=== PATIENT | male | born 1945 | race Caucasian/White ===

== ENCOUNTER → 2018-08-25 16:13 | Outpatient (CLI) | payer MEDICARE, BC, SELFPAY ==
--- NOTE | 2018-08-25 | DI.RAD.S_ITS ---
PROCEDURE: XR FOOT RT MIN 3V INDICATIONS: PAIN IN RIGHT ANKLE AND JOINTS, UNSPECIFIED FALL TECHNIQUE: 3 views of the foot were acquired. COMPARISON: None. FINDINGS: Bones: No fractures or dislocations. No suspicious bony lesions. Soft tissues: No tibiotalar joint effusion. Achilles tendon appears normal. IMPRESSION: No trauma found. Dictated by: Dada Kelly M.D. on 08/25/2018 at 17:04 Approved by: Dada Kelly M.D. on 08/25/2018 at 17:04
--- NOTE | 2018-08-25 | DI.RAD.S_ITS ---
PROCEDURE: XR ANKLE RT 2V INDICATIONS: UNSPECIFIED FALL, PAIN IN RIGHT ANKLE AND JOINT TECHNIQUE: 3 views of the ankle were acquired. COMPARISON: None. FINDINGS: Bones: No fractures or dislocations. Ankle mortise is normally aligned. No suspicious bony lesions. Soft tissues: No tibiotalar joint effusion. Achilles tendon appears normal. IMPRESSION: No trauma found. Dictated by: Dada Kelly M.D. on 08/25/2018 at 17:03 Approved by: Dada Kelly M.D. on 08/25/2018 at 17:04
== END ==
PROVIDERS: PCP Physician Assistant; Visit Provider Student in an Organized Health Care Education/Training Program
DX: M25.571 Pain in right ankle and joints of right foot (principal)
CPT/HCPCS: 73600; 73630

== ENCOUNTER 2018-09-01 14:46 | Emergency (ER) | payer MEDICARE, BC, SELFPAY ==
[2018-09-01 14:50] VITALS: BP 158/90; PULSE 70; RESP 18; TEMP 36.4; O2SAT 98
--- NOTE | 2018-09-01 16:19 | DI.RAD.S_ITS ---
PROCEDURE: XR FOOT RT MIN 3V INDICATIONS: injury, worsening pain TECHNIQUE: 3 views of the foot were acquired. COMPARISON: [facility], CR, XR FOOT RT MIN 3V, 08/25/2018, 16:25. FINDINGS: Bones: No fractures or dislocations. No suspicious bony lesions. Soft tissues: No tibiotalar joint effusion. Achilles tendon appears normal. IMPRESSION: No trauma is found. Depending on the clinical status followup by advance imaging such as MR scanning may be warranted to assist in detecting ligamentous injury or a hidden fracture in the setting of unexpected worsening pain after trauma. Plain film imaging also had been obtained through the right foot 08/25/18. Dictated by: Dada Kelly M.D. on 09/01/2018 at 16:55 Approved by: Dada Kelly M.D. on 09/01/2018 at 16:59
[2018-09-01] MEDS: TRIMETH/SULFA 160/800 (DS) TABLET 1 TAB PO (16:24)
[2018-09-01 18:06] VITALS: BP 133/76; PULSE 65; RESP 16; TEMP 36.6; O2SAT 93
--- NOTE | 2018-09-15 07:31 | ED.EXTPRO ---
HPI - Extremity Problem General Chief complaint: Extremity Problem,Nontraumatic Stated complaint: right ankle sprain and cellulitis, not healing Time Seen by Provider: 09/01/18 15:02 Source: patient and family Mode of arrival: ambulatory Limitations: no limitations History of Present Illness HPI Narrative: Patient states that about 6 days ago, he twisted his right foot and ankle. He states that the area bruised up but also began to become red and more painful and swollen, so he sought medical attention a couple of days ago. X-rays were performed, and found to be negative, and patient was started on clindamycin. However, the patient states that the redness has persisted, and the pain and swelling are bothering him. He is concerned that his antibiotics are not working properly. Patient also is concerned that there may be an infection deep in his foot and that is why the foot hurts. Patient did not have any skin breakage during the injury. He denies fevers. No streaking. He states the redness may be slightly better today but it is hard to tell because of the bruising. Related Data Home Medications Medication Instructions Recorded Confirmed ascorbic acid (vitamin C) [Vitamin 500 mg PO PRN PRN 06/10/18 09/01/18 C] atorvastatin 40 mg PO DAILY 06/10/18 09/01/18 carvedilol 12.5 mg PO BID 06/10/18 09/01/18 coenzyme Q10 [Co Q-10] 300 mg PO DAILY 06/10/18 09/01/18 dabigatran etexilate [Pradaxa] 150 mg PO BID 06/10/18 09/01/18 isosorbide mononitrate 30 mg PO DAILY 06/10/18 09/01/18 lutein-zeaxanthin 1 cap PO DAILY 06/10/18 09/01/18 nitroglycerin 0.4 mg SUBLINGUAL Q5-15M PRN 06/10/18 09/01/18 calcium carbonate 1 tab PO PRN PRN 09/01/18 09/01/18 [id number] 1 drp OPHTHALMIC (EYE) PRN PRN 09/01/18 09/01/18 [Refresh Optive Advanced] ranibizumab [Lucentis] See Label Instructions .ROUTE 09/01/18 09/01/18 .COMPLEX ranitidine HCl 75 mg PO BID 09/01/18 09/01/18 Previous Rx's Medication Instructions Recorded sulfamethoxazole-trimethoprim 1 tab PO BID #14 tab 09/01/18 [Bactrim DS] Allergies Allergy/AdvReac Type Severity Reaction Status Date / Time No Known Drug Allergies Allergy Verified 09/01/18 14:54 Review of Systems Constitutional Denies chills, Denies fever(s), Denies lethargy and Denies weakness Eyes Denies change in vision, Denies eye discharge, Denies irritation and Denies loss of vision ENT Ears, Nose, Mouth, and Throat: Denies change in voice, Denies neck pain and Denies sore throat Cardiovascular Denies chest pain, Denies irregular heart rhythm, Denies lightheadedness, Denies palpitations, Denies dyspnea, Denies dyspnea on exertion and Denies orthopnea Respiratory Denies cough, Denies dyspnea, Denies dyspnea on exertion and Denies wheezing Gastrointestinal Gastrointestinal: Denies abdominal pain, Denies change in bowel habits, Denies diarrhea, Denies nausea and Denies vomiting Genitourinary Denies hematuria, Denies flank pain, Denies urinary incontinence and Denies urinary urgency Musculoskeletal Denies neck pain Comments: Right foot and ankle pain Integumentary/Breasts Denies pruritus, Reports erythema, Denies rash and Denies wounds Comments: Contusion Neurologic Denies confusion, Denies loss of vision and Denies weakness Psychiatric Denies anxiety, Denies confusion, Denies depression, Denies homicidal ideation and Denies suicidal ideation Endocrine Denies palpitations Hematologic/Lymphatic Denies easy bruising Allergic/Immunologic Denies wheezing [facility] Medical History Lymphocytosis (Acute) Cellulitis (Acute) Sprain of foot, right (Acute) Surgical History No pertinent past surgical history (Acute) Social History Smoking Status: Never smoker Social History Smoking Status: Never smoker Exam Initial Vital Signs Initial Vital Signs: Vital Signs Temperature 97.5 F L 09/01/18 14:50 Pulse Rate 70 09/01/18 14:50 Respiratory Rate 18 09/01/18 14:50 Blood Pressure 158/90 H 09/01/18 14:50 Pulse Oximetry 98 09/01/18 14:50 Const General: cooperative and well developed Nutritional Appearance: well nourished Orientation: alert, awake, oriented x3 and not confused [facility] Head: normocephalic and atraumatic Ears: external ears normal and TM's normal bilaterally Nose: external nose normal and No nasal discharge Face and sinus: sinuses nontender, face symmetric, no sinus tenderness and No dry mucous membranes Mouth: oral mucosae normal and moist mucous membranes Teeth and gingiva: dentition normal Throat: tonsils normal and uvula midline Eyes General: appearance normal, both eyes and all related structures Eyelids: eyelids normal Conjunctivae: conjunctivae normal Sclera: sclerae normal Pupils: PERRL EOM: EOM intact bilaterally Neck Neck: normal visual inspection, trachea midline, No lymphadenopathy, No midline deformity and No JVD Lymphatic: No lymphedema Chest Chest: normal inspection of the chest Resp Effort & Inspection: normal respiratory effort, able to speak in complete sentences, no respiratory distress and no use of accessory muscles Auscultation: clear to auscultation bilaterally, no rales, no rhonchi and no wheezes Cardio Rate: regular rate Rhythm: regular rhythm Heart Sounds: no click, no gallops, no murmurs and no rubs Pulses: normal peripheral pulses GI Inspection: non-distended Palpation: soft, no hepatosplenomegaly, No guarding, No pulsatile mass and No tender Auscultation: normal bowel sounds Back/Spine/Pelvis Back: No CVA tenderness Cervical Spine: cervical ROM normal and No pain with cervical ROM Thoracic/Lumbar Spine: thoracic and lumbar spine normal to inspection Skin General: no rashes or lesions noted, No jaundice and No petechiae Other: Erythema and contusion of right foot, as noted under the extremity exam. Neuro General: alert, oriented x3, gait normal and no focal motor deficits Speech: speech normal Extrem General: full ROM and no calf tenderness Other: Patient has subacute contusion noted over his dorsal right foot with moderate edema. Mild edema of the lateral ankle is noted, as well as faint contusion. There is also erythema over the dorsum of the right foot which extends a few cm past the area of contusion. The total area of erythema is approximately 8 cm in diameter. There is no streaking. No crepitus. No no fluctuance or induration. Distal pulses are intact. Psych Appearance: well kempt Mental Status: mental status grossly normal Attitude: cooperative Thought Content: normal and suicidality Judgment: judgment good Course Course Narrative: Patient's x-rays were repeated, and no development or clarification of occult fracture was found. I did discuss with the patient that most likely, he needs more time on antibiotics to see a better turnaround. However, since the more optimal coverage for skin pathogens would be Bactrim, I will switch him to this. We have discussed the usual indications for return under the circumstances, including redness that continues to spread over the next few days, as well as development of fever, among other things. Patient is agreeable to this plan. Orders Ordered: Discontinued Medications Trimethoprim/Sulfamethoxazole (Bactrim Ds) 1 tab PO NOW ONE Stop: 09/01/18 16:20 Last Admin: 09/01/18 16:24 Dose: 1 tab MDM - Extremity (Nontraumatic) Medical Records Attestation: I reviewed the patient's medical records. Imaging Data Right foot x-ray: Attestation: I personally reviewed and interpreted this imaging study as follows: My impression: Negative Radiologist's impression: [address] [address] XRay Report Signed Patient: Mike KramerMR#: [id number] : 5Acct:[id number] Age/Sex: 72 / MDate of Service: 09/01/18 Loc: ED Accession Number: [id number] Procedure: XR foot RT min 3V Ordering Provider: Radha Hayes MD PROCEDURE: XR FOOT RT MIN 3V INDICATIONS: injury, worsening pain TECHNIQUE: 3 views of the foot were acquired. COMPARISON: [facility], , XR FOOT RT MIN 3V, 08/25/2018, 16:25. FINDINGS: Bones: No fractures or dislocations. No suspicious bony lesions. Soft tissues: No tibiotalar joint effusion. Achilles tendon appears normal. IMPRESSION: No trauma is found. Depending on the clinical status followup by advance imaging such as MR scanning may be warranted to assist in detecting ligamentous injury or a hidden fracture in the setting of unexpected worsening pain after trauma. Plain film imaging also had been obtained through the right foot 08/25/18. Dictated by: Dada Kelly M.D. on 09/01/2018 at 16:55 Approved by: Dada Kelly M.D. on 09/01/2018 at 16:59 Discharge Plan Departure Patient Disposition: Home Clinical Impression: Cellulitis, Sprain of foot, right Discharge Date/Time: 09/01/18 18:08 Interventions: ED Discharge Assessment Last Done: 09/01/18 18:06 Instructions: DI for Cellulitis -- Adult, DI for Foot Sprain Activity Restrictions/Additional Instructions: Your x-rays do not show evidence of any broken bones. The progression of the redness seems to have stalled, and most likely, you just need more time on antibiotics. However, you will be switched to the first choice for skin infection, to be sure you are being adequately treated for all the potential bacteria expected for this kind of infection. Prescriptions: New sulfamethoxazole-trimethoprim [Bactrim DS] 800-160 mg tablet 1 tab PO BID Qty: 14 RF: 0 No Action [id number] [Refresh Optive Advanced] 0.5-1-0.5 % drops 1 drp ophthalmic (eye) PRN PRN (Reason: Dry Eyes) RF: 0 ranitidine HCl 75 mg Tablet 75 mg PO BID RF: 0 calcium carbonate 320 mg calcium (750 mg) Tablet,Chewable 1 tab PO PRN PRN (Reason: Indigestion) RF: 0 ranibizumab [Lucentis] 0.5 mg/0.05 mL Syringe See Label Instructions .ROUTE .COMPLEX RF: 0 atorvastatin 40 mg Tablet 40 mg PO DAILY RF: 0 carvedilol 12.5 mg Tablet 12.5 mg PO BID RF: 0 isosorbide mononitrate 30 mg Tablet Extended Release 24 Hr 30 mg PO DAILY RF: 0 ascorbic acid (vitamin C) [Vitamin C] 500 mg Tablet 500 mg PO PRN PRN (Reason: unknown) RF: 0 nitroglycerin 0.4 mg Tablet, Sublingual 0.4 mg SUBLINGUAL Q5-15M PRN (Reason: Angina) RF: 0 coenzyme Q10 [Co Q-10] 300 mg Capsule 300 mg PO DAILY RF: 0 dabigatran etexilate [Pradaxa] 150 mg Capsule 150 mg PO BID RF: 0 lutein-zeaxanthin 25-5 mg Capsule 1 cap PO DAILY RF: 0 Referrals: Latonia Malik PA-C [Primary Care Provider] -
--- NOTE | 2018-09-15 07:38 | ED_ITS ---
HPI - Extremity Problem General Chief complaint: Extremity Problem,Nontraumatic Stated complaint: right ankle sprain and cellulitis, not healing Time Seen by Provider: 09/01/18 15:02 Source: patient and family Mode of arrival: ambulatory Limitations: no limitations History of Present Illness HPI Narrative: Patient states that about 6 days ago, he twisted his right foot and ankle. He states that the area bruised up but also began to become red and more painful and swollen, so he sought medical attention a couple of days ago. X-rays were performed, and found to be negative, and patient was started on clindamycin. However, the patient states that the redness has persisted, and the pain and swelling are bothering him. He is concerned that his antibiotics are not working properly. Patient also is concerned that there may be an infection deep in his foot and that is why the foot hurts. Patient did not have any skin breakage during the injury. He denies fevers. No streaking. He states the redness may be slightly better today but it is hard to tell because of the bruising. Related Data Home Medications Medication Instructions Recorded Confirmed ascorbic acid (vitamin C) [Vitamin 500 mg PO PRN PRN 06/10/18 09/01/18 C] atorvastatin 40 mg PO DAILY 06/10/18 09/01/18 carvedilol 12.5 mg PO BID 06/10/18 09/01/18 coenzyme Q10 [Co Q-10] 300 mg PO DAILY 06/10/18 09/01/18 dabigatran etexilate [Pradaxa] 150 mg PO BID 06/10/18 09/01/18 isosorbide mononitrate 30 mg PO DAILY 06/10/18 09/01/18 lutein-zeaxanthin 1 cap PO DAILY 06/10/18 09/01/18 nitroglycerin 0.4 mg SUBLINGUAL Q5-15M PRN 06/10/18 09/01/18 calcium carbonate 1 tab PO PRN PRN 09/01/18 09/01/18 [id number] 1 drp OPHTHALMIC (EYE) PRN PRN 09/01/18 09/01/18 [Refresh Optive Advanced] ranibizumab [Lucentis] See Label Instructions .ROUTE 09/01/18 09/01/18 .COMPLEX ranitidine HCl 75 mg PO BID 09/01/18 09/01/18 Previous Rx's Medication Instructions Recorded sulfamethoxazole-trimethoprim 1 tab PO BID #14 tab 09/01/18 [Bactrim DS] Allergies Allergy/AdvReac Type Severity Reaction Status Date / Time No Known Drug Allergies Allergy Verified 09/01/18 14:54 Review of Systems Constitutional Denies chills, Denies fever(s), Denies lethargy and Denies weakness Eyes Denies change in vision, Denies eye discharge, Denies irritation and Denies loss of vision ENT Ears, Nose, Mouth, and Throat: Denies change in voice, Denies neck pain and Denies sore throat Cardiovascular Denies chest pain, Denies irregular heart rhythm, Denies lightheadedness, Denies palpitations, Denies dyspnea, Denies dyspnea on exertion and Denies orthopnea Respiratory Denies cough, Denies dyspnea, Denies dyspnea on exertion and Denies wheezing Gastrointestinal Gastrointestinal: Denies abdominal pain, Denies change in bowel habits, Denies diarrhea, Denies nausea and Denies vomiting Genitourinary Denies hematuria, Denies flank pain, Denies urinary incontinence and Denies urinary urgency Musculoskeletal Denies neck pain Comments: Right foot and ankle pain Integumentary/Breasts Denies pruritus, Reports erythema, Denies rash and Denies wounds Comments: Contusion Neurologic Denies confusion, Denies loss of vision and Denies weakness Psychiatric Denies anxiety, Denies confusion, Denies depression, Denies homicidal ideation and Denies suicidal ideation Endocrine Denies palpitations Hematologic/Lymphatic Denies easy bruising Allergic/Immunologic Denies wheezing [facility] Medical History Lymphocytosis (Acute) Cellulitis (Acute) Sprain of foot, right (Acute) Surgical History No pertinent past surgical history (Acute) Social History Smoking Status: Never smoker Social History Smoking Status: Never smoker Exam Initial Vital Signs Initial Vital Signs: Vital Signs Temperature 97.5 F L 09/01/18 14:50 Pulse Rate 70 09/01/18 14:50 Respiratory Rate 18 09/01/18 14:50 Blood Pressure 158/90 H 09/01/18 14:50 Pulse Oximetry 98 09/01/18 14:50 Const General: cooperative and well developed Nutritional Appearance: well nourished Orientation: alert, awake, oriented x3 and not confused [facility] Head: normocephalic and atraumatic Ears: external ears normal and TM's normal bilaterally Nose: external nose normal and No nasal discharge Face and sinus: sinuses nontender, face symmetric, no sinus tenderness and No dry mucous membranes Mouth: oral mucosae normal and moist mucous membranes Teeth and gingiva: dentition normal Throat: tonsils normal and uvula midline Eyes General: appearance normal, both eyes and all related structures Eyelids: eyelids normal Conjunctivae: conjunctivae normal Sclera: sclerae normal Pupils: PERRL EOM: EOM intact bilaterally Neck Neck: normal visual inspection, trachea midline, No lymphadenopathy, No midline deformity and No JVD Lymphatic: No lymphedema Chest Chest: normal inspection of the chest Resp Effort & Inspection: normal respiratory effort, able to speak in complete sentences, no respiratory distress and no use of accessory muscles Auscultation: clear to auscultation bilaterally, no rales, no rhonchi and no wheezes Cardio Rate: regular rate Rhythm: regular rhythm Heart Sounds: no click, no gallops, no murmurs and no rubs Pulses: normal peripheral pulses GI Inspection: non-distended Palpation: soft, no hepatosplenomegaly, No guarding, No pulsatile mass and No tender Auscultation: normal bowel sounds Back/Spine/Pelvis Back: No CVA tenderness Cervical Spine: cervical ROM normal and No pain with cervical ROM Thoracic/Lumbar Spine: thoracic and lumbar spine normal to inspection Skin General: no rashes or lesions noted, No jaundice and No petechiae Other: Erythema and contusion of right foot, as noted under the extremity exam. Neuro General: alert, oriented x3, gait normal and no focal motor deficits Speech: speech normal Extrem General: full ROM and no calf tenderness Other: Patient has subacute contusion noted over his dorsal right foot with moderate edema. Mild edema of the lateral ankle is noted, as well as faint contusion. There is also erythema over the dorsum of the right foot which extends a few cm past the area of contusion. The total area of erythema is approximately 8 cm in diameter. There is no streaking. No crepitus. No no fluctuance or induration. Distal pulses are intact. Psych Appearance: well kempt Mental Status: mental status grossly normal Attitude: cooperative Thought Content: normal and suicidality Judgment: judgment good Course Course Narrative: Patient's x-rays were repeated, and no development or clarification of occult fracture was found. I did discuss with the patient that most likely, he needs more time on antibiotics to see a better turnaround. However, since the more optimal coverage for skin pathogens would be Bactrim, I will switch him to this. We have discussed the usual indications for return under the circumstances, including redness that continues to spread over the next few days, as well as development of fever, among other things. Patient is agreeable to this plan. Orders Ordered: Discontinued Medications Trimethoprim/Sulfamethoxazole (Bactrim Ds) 1 tab PO NOW ONE Stop: 09/01/18 16:20 Last Admin: 09/01/18 16:24 Dose: 1 tab MDM - Extremity (Nontraumatic) Medical Records Attestation: I reviewed the patient's medical records. Imaging Data Right foot x-ray: Attestation: I personally reviewed and interpreted this imaging study as follows: My impression: Negative Radiologist's impression: [address] [address] XRay Report Signed Patient: Mike KramerMR#: [id number] : 5Acct:[id number] Age/Sex: 72 / MDate of Service: 09/01/18 Loc: ED Accession Number: [id number] Procedure: XR foot RT min 3V Ordering Provider: Radha Hayes MD PROCEDURE: XR FOOT RT MIN 3V INDICATIONS: injury, worsening pain TECHNIQUE: 3 views of the foot were acquired. COMPARISON: [facility], , XR FOOT RT MIN 3V, 08/25/2018, 16:25. FINDINGS: Bones: No fractures or dislocations. No suspicious bony lesions. Soft tissues: No tibiotalar joint effusion. Achilles tendon appears normal. IMPRESSION: No trauma is found. Depending on the clinical status followup by advance imaging such as MR scanning may be warranted to assist in detecting ligamentous injury or a hidden fracture in the setting of unexpected worsening pain after trauma. Plain film imaging also had been obtained through the right foot 08/25/18. Dictated by: Dada Kelly M.D. on 09/01/2018 at 16:55 Approved by: Dada Kelly M.D. on 09/01/2018 at 16:59 Discharge Plan Departure Patient Disposition: Home Clinical Impression: Cellulitis, Sprain of foot, right Discharge Date/Time: 09/01/18 18:08 Interventions: ED Discharge Assessment Last Done: 09/01/18 18:06 Instructions: DI for Cellulitis -- Adult, DI for Foot Sprain Activity Restrictions/Additional Instructions: Your x-rays do not show evidence of any broken bones. The progression of the redness seems to have stalled, and most likely, you just need more time on antibiotics. However, you will be switched to the first choice for skin infection, to be sure you are being adequately treated for all the potential bacteria expected for this kind of infection. Prescriptions: New sulfamethoxazole-trimethoprim [Bactrim DS] 800-160 mg tablet 1 tab PO BID Qty: 14 RF: 0 No Action [id number] [Refresh Optive Advanced] 0.5-1-0.5 % drops 1 drp ophthalmic (eye) PRN PRN (Reason: Dry Eyes) RF: 0 ranitidine HCl 75 mg Tablet 75 mg PO BID RF: 0 calcium carbonate 320 mg calcium (750 mg) Tablet,Chewable 1 tab PO PRN PRN (Reason: Indigestion) RF: 0 ranibizumab [Lucentis] 0.5 mg/0.05 mL Syringe See Label Instructions .ROUTE .COMPLEX RF: 0 atorvastatin 40 mg Tablet 40 mg PO DAILY RF: 0 carvedilol 12.5 mg Tablet 12.5 mg PO BID RF: 0 isosorbide mononitrate 30 mg Tablet Extended Release 24 Hr 30 mg PO DAILY RF: 0 ascorbic acid (vitamin C) [Vitamin C] 500 mg Tablet 500 mg PO PRN PRN (Reason: unknown) RF: 0 nitroglycerin 0.4 mg Tablet, Sublingual 0.4 mg SUBLINGUAL Q5-15M PRN (Reason: Angina) RF: 0 coenzyme Q10 [Co Q-10] 300 mg Capsule 300 mg PO DAILY RF: 0 dabigatran etexilate [Pradaxa] 150 mg Capsule 150 mg PO BID RF: 0 lutein-zeaxanthin 25-5 mg Capsule 1 cap PO DAILY RF: 0 Referrals: Latonia Malik PA-C [Primary Care Provider] -
== END 2018-09-01 18:08 | disposition home or self-care (01) ==
PROVIDERS: Emergency Provider Emergency Medicine; PCP Physician Assistant
DX: L03.115 Cellulitis of right lower limb (principal); S93.601A Unspecified sprain of right foot, initial encounter
CPT/HCPCS: 73630; 99282; 99283

== ENCOUNTER → 2020-04-04 16:40 | Outpatient (CLI) | payer MEDICARE, BC, SELFPAY ==
[2020-04-04 18:00] LABS: Add Manual Diff / Slide Review NO; Basophils Absolute Auto 0 /uL (0-100); Basophils Percent Auto 0.2 % (0-2); Eosinophils Absolute Auto 200 /uL (0-450); Eosinophils Percent Auto 1.2 % (2-4); Hematocrit 41.1 % (41-53); Lymphocytes Absolute Auto 8800 /uL (1100-4500); Lymphocytes Percent Auto 60.6 % (25-40); Mean Corpuscular Hemoglobin 31.3 PG (26-34); Monocytes Absolute Auto 900 /uL (0-900); Monocytes Percent Auto 5.9 % (3-14); Neutrophils Absolute Auto 4700 /uL (1500-7000); Neutrophils Percent Auto 32.1 % (50-75); Platelet Count 119 X10^3/uL (150-400); Red Blood Cell Count 4.47 X10^6/uL (4.5-5.9); Red Cell Distribution Width 13.3 % (11.6-14.8); White Blood Cell Count 14.6 X10^3/uL (4.5-11.0)
[2020-04-04 18:11] LABS: Alanine Aminotransferase 26 IU/L (<50); Albumin Globulin Ratio 1.4 (1.0-2.8); Alkaline Phosphatase 67 U/L (38-126); Aspartate Aminotransferase 30 IU/L (17-59); BUN Creatinine Ratio 22.7 (6-22); Bilirubin Total 0.7 mg/dL (0.2-1.3); Blood Urea Nitrogen 17 mg/dL (9-20); Calcium 8.7 mg/dL (8.4-10.2); Carbon Dioxide 28 mmol/L (22-32); Chloride 104 mmol/L (98-107); Estimated Glomerular Filt Rate > 60.0 mL/min (>60); Globulin 2.8 g/dL (1.7-4.1); Glucose 85 mg/dL (80-110); HEMOLYSIS < 15 (0-50); Lactate Dehydrogenase 416 U/L (313-618); Potassium 4.5 mmol/L (3.4-5.1); Sodium 137 mmol/L (137-145); Total Protein 6.8 g/dL (6.3-8.2)
== END ==
PROVIDERS: PCP Internal Medicine; Referring Provider Internal Medicine Hematology & Oncology; Visit Provider Internal Medicine Hematology & Oncology
DX: C91.90 Lymphoid leukemia, unspecified not having achieved remission (principal)
CPT/HCPCS: 36415; 80053; 83615; 85025

== ENCOUNTER → 2020-06-15 19:04 | Outpatient (ROUT) | payer MEDICARE, BC, SELFPAY ==
[2020-06-15 19:25] LABS: Alanine Aminotransferase 26 IU/L (<50); Albumin Globulin Ratio 1.4 (1.0-2.8); Alkaline Phosphatase 68 U/L (38-126); Aspartate Aminotransferase 31 IU/L (17-59); BUN Creatinine Ratio 22.2 (6-22); Bilirubin Total 0.6 mg/dL (0.2-1.3); Blood Urea Nitrogen 16 mg/dL (9-20); Calcium 8.8 mg/dL (8.4-10.2); Carbon Dioxide 27 mmol/L (22-32); Chloride 105 mmol/L (98-107); Cholesterol 132 mg/dL (140-199); Estimated Glomerular Filt Rate > 60.0 mL/min (>60); Globulin 2.8 g/dL (1.7-4.1); Glucose 85 mg/dL (80-110); HDL Cholesterol 50 mg/dL (40-60); HEMOLYSIS < 15 (0-50); LDL Cholesterol Calculated 68 mg/dL (<100); Potassium 4.5 mmol/L (3.4-5.1); Sodium 138 mmol/L (137-145); Total Protein 6.8 g/dL (6.3-8.2); Triglycerides 72 mg/dL (35-150)
[2020-06-15 19:43] LABS: Hematocrit 45.9 % (41-53); Hemoglobin 15.3 g/dL (13.5-17.5); Mean Corpuscular HGB Conc 33.3 % (30-36); Mean Corpuscular Volume 93.1 fL (80-100); Platelet Count 154 X10^3/uL (150-400); Red Blood Cell Count 4.93 X10^6/uL (4.5-5.9); Red Cell Distribution Width 14.1 % (11.6-14.8); White Blood Cell Count 17.7 X10^3/uL (4.5-11.0)
[2020-06-15 19:45] LABS: Add Manual Diff / Slide Review YES
[2020-06-15 19:53] LABS: TSH w/ Reflex to FT4 2.83 uIU/mL (0.47-4.68)
[2020-06-15 20:06] LABS: Neutrophils Absolute Manual 4956 /uL (3000-5900); Total Cells Counted 100
[2020-06-15 20:07] LABS: RBC Morphology Normal Morphology; Smudge Cells 1+
== END ==
PROVIDERS: PCP Internal Medicine; Visit Provider Internal Medicine
DX: I48.0 Paroxysmal atrial fibrillation (principal); E78.2 Mixed hyperlipidemia
CPT/HCPCS: 80053; 80061; 84443; 85025

== ENCOUNTER → 2020-10-12 16:19 | Outpatient (CLI) | payer MEDICARE, BC, SELFPAY ==
[2020-10-12 17:05] LABS: Add Manual Diff / Slide Review YES; Hematocrit 42.1 % (41-53); Hemoglobin 14.5 g/dL (13.5-17.5); Mean Corpuscular HGB Conc 34.3 % (30-36); Mean Corpuscular Hemoglobin 31.7 PG (26-34); Mean Corpuscular Volume 92.4 fL (80-100); Platelet Count 132 X10^3/uL (150-400); Red Blood Cell Count 4.56 X10^6/uL (4.5-5.9); Red Cell Distribution Width 12.9 % (11.6-14.8)
[2020-10-12 17:16] LABS: Alanine Aminotransferase 27 IU/L (<50); Albumin 4.2 g/dL (3.5-5.0); Albumin Globulin Ratio 1.5 (1.0-2.8); Alkaline Phosphatase 77 U/L (38-126); Aspartate Aminotransferase 31 IU/L (17-59); BUN Creatinine Ratio 25.3 (6-22); Bilirubin Total 0.8 mg/dL (0.2-1.3); Blood Urea Nitrogen 19 mg/dL (9-20); Carbon Dioxide 28 mmol/L (22-32); Chloride 101 mmol/L (98-107); Estimated Glomerular Filt Rate > 60.0 mL/min (>60); Globulin 2.8 g/dL (1.7-4.1); Glucose 91 mg/dL (80-110); HEMOLYSIS < 15 (0-50); Lactate Dehydrogenase 479 U/L (313-618); Potassium 4.4 mmol/L (3.4-5.1); Sodium 137 mmol/L (137-145)
[2020-10-12 17:21] LABS: Neutrophils Absolute Manual 4960 /uL (3000-5900); RBC Morphology Normal Morphology; Total Cells Counted 100
[2020-10-12 18:56] LABS: TSH w/ Reflex to FT4 1.84 uIU/mL (0.47-4.68)
== END ==
PROVIDERS: PCP Internal Medicine; Referring Provider Internal Medicine Hematology & Oncology; Visit Provider Internal Medicine Hematology & Oncology
DX: Z79.899 Other long term (current) drug therapy (principal); C91.90 Lymphoid leukemia, unspecified not having achieved remission
CPT/HCPCS: 36415; 80053; 83615; 84443; 85007; 85025

== ENCOUNTER → 2020-12-13 12:59 | Outpatient (CLI) | payer MEDICARE, BC, SELFPAY ==
[2020-12-13 14:06] LABS: COVID19 -Nasal RAPID Negative (Negative)
== END ==
PROVIDERS: PCP Internal Medicine; Referring Provider Internal Medicine; Visit Provider Internal Medicine
DX: R06.00 Dyspnea, unspecified (principal); Z79.899 Other long term (current) drug therapy; Z20.822 Contact with and (suspected) exposure to COVID-19
CPT/HCPCS: 87635; C9803

== ENCOUNTER → 2020-12-13 13:07 | Outpatient (CLI) | payer MEDICARE, BC, SELFPAY ==
--- NOTE | 2020-12-13 | DI.RAD.S_ITS ---
PROCEDURE: XR CHEST 2V INDICATIONS: Dyspnea, unspecified TECHNIQUE: 2 views of the chest were acquired. COMPARISON: None. FINDINGS: Surgical changes and devices: None. Lungs and pleura: Lungs are clear. No pleural effusions or pneumothorax. Mediastinum: Mediastinal contours are normal. Heart size is normal. Bones and chest wall: No suspicious bony abnormalities. Soft tissues appear unremarkable. IMPRESSION: No definite patchy alveolar infiltration is present. No pleural effusion or cardiomegaly is found. There is a small degree of interstitial prominence at the right lung base, conceivably as slight pneumonia seen on the frontal view only. Depending on the clinical status a follow-up frontal view chest may be warranted. Dictated by: Dada Kelly M.D. on 12/13/2020 at 14:49 Approved by: Dada Kelly M.D. on 12/13/2020 at 14:51
--- NOTE | 2020-12-16 07:18 | PM.PFT.1 ---
Pulmonary Function Test Referral & Results Date Patient Seen: 12/13/20 Requesting provider: Rajesh Jiménez Results: The spirometry demonstrates an FVC of 3.95 L which is 90% of predicted. The FEV1 was measured at 3.16 L which is 100% of predicted. The FEV1/FVC ratio was 80 which is 111% of predicted. Following the administration of bronchodilator there was an 18% improvement in FEF 25-75%. Lung volumes show an SVC of 4.25 L which is 92% of predicted. The diffusing capacity was measured at 32.90 which is 97% of predicted. The maximum voluntary ventilation was normal Interpretation: This study demonstrates normal pulmonary function. There is a minimal improvement in FEF 25-75% following bronchodilator administration which might suggest some element of improvement in small airway flow post bronchodilator, and shape a flow volume loop does support a minimal element of obstructive lung disease, so there might well be very very minimal obstructive lung disease present. Clinical correlation suggested
== END ==
PROVIDERS: PCP Internal Medicine; Referring Provider Internal Medicine Cardiovascular Disease; Visit Provider Internal Medicine Cardiovascular Disease
DX: Z79.899 Other long term (current) drug therapy (principal); Z20.822 Contact with and (suspected) exposure to COVID-19; R06.02 Shortness of breath
CPT/HCPCS: 71046; 87635; 94060; 94726; 94729; C9803

== ENCOUNTER → 2021-12-04 11:11 | Outpatient (CLI) | payer MEDICARE, BC, SELFPAY ==
--- NOTE | 2021-12-04 11:12 | DI.RAD.S_ITS ---
PROCEDURE: XR CHEST 2V INDICATIONS: shortness of breath TECHNIQUE: 2 views of the chest were acquired. COMPARISON: [facility], CR, XR CHEST 2V, 12/13/2020, 13:08. FINDINGS: Surgical changes and devices: None. Lungs and pleura: Lungs are clear. No pleural effusions or pneumothorax. Mediastinum: Mediastinal contours are normal. Mild cardiomegaly. Bones and chest wall: No suspicious bony abnormalities. Soft tissues appear unremarkable. IMPRESSION: Mild cardiomegaly. No evidence acute pulmonary process. Dictated by: Joe Perkins M.D. on 12/04/2021 at 17:47 Approved by: Joe Perkins M.D. on 12/04/2021 at 17:47
== END ==
PROVIDERS: PCP Internal Medicine; Referring Provider Internal Medicine; Visit Provider Internal Medicine
DX: I48.0 Paroxysmal atrial fibrillation (principal); R06.09 Other forms of dyspnea; I51.7 Cardiomegaly; R06.02 Shortness of breath
CPT/HCPCS: 71046

== ENCOUNTER → 2021-12-25 13:20 | Outpatient (CLI) | payer MEDICARE, BC, SELFPAY ==
[2021-12-25 15:43] LABS: COVID-19 CEPHEID PCR (VTM/NP) Negative (Negative)
== END ==
PROVIDERS: PCP Internal Medicine; Visit Provider Family Medicine Sleep Medicine
DX: Z20.822 Contact with and (suspected) exposure to COVID-19 (principal)
CPT/HCPCS: C9803; U0003; U0005

== ENCOUNTER → 2022-01-15 13:25 | Outpatient (CLI) | payer MEDICARE, BC, SELFPAY ==
[2022-01-15 14:39] LABS: Add Manual Diff / Slide Review NO; Basophils Absolute Auto 0 /uL (0-100); Basophils Percent Auto 0.3 % (0-2); Eosinophils Absolute Auto 200 /uL (0-450); Eosinophils Percent Auto 1.6 % (2-4); Hematocrit 36.6 % (41-53); Hemoglobin 11.8 g/dL (13.5-17.5); Lymphocytes Absolute Auto 5700 /uL (1100-4500); Lymphocytes Percent Auto 50.1 % (25-40); Mean Corpuscular HGB Conc 32.3 % (30-36); Mean Corpuscular Hemoglobin 27.1 PG (26-34); Mean Corpuscular Volume 83.7 fL (80-100); Monocytes Absolute Auto 600 /uL (0-900); Monocytes Percent Auto 5.6 % (3-14); Neutrophils Absolute Auto 4800 /uL (1500-7000); Neutrophils Percent Auto 42.4 % (50-75); Platelet Count 148 X10^3/uL (150-400); Red Blood Cell Count 4.37 X10^6/uL (4.5-5.9); Red Cell Distribution Width 19.5 % (11.6-14.8); White Blood Cell Count 11.4 X10^3/uL (4.5-11.0)
[2022-01-15 14:40] LABS: Reticulocyte Count, Percent 1.1 % (0.9-2.6)
[2022-01-15 14:54] LABS: Alanine Aminotransferase 45 IU/L (<50); Albumin Globulin Ratio 1.4 (1.0-2.8); Alkaline Phosphatase 81 U/L (38-126); Aspartate Aminotransferase 40 IU/L (17-59); BUN Creatinine Ratio 22.1 (6-22); Bilirubin Total 0.4 mg/dL (0.2-1.3); Blood Urea Nitrogen 17 mg/dL (9-20); Calcium 8.5 mg/dL (8.4-10.2); Carbon Dioxide 26 mmol/L (22-32); Chloride 104 mmol/L (98-107); Estimated Glomerular Filt Rate > 60 mL/min (>60); Globulin 2.8 g/dL (1.7-4.1); Glucose 100 mg/dL (80-110); HEMOLYSIS < 15 (0-50); Iron 105 ug/dL (49-181); Potassium 4.3 mmol/L (3.4-5.1); Sodium 135 mmol/L (137-145); Total Protein 6.8 g/dL (6.3-8.2)
[2022-01-15 15:05] LABS: Percent Iron Saturation 29 % (20-50); Total Iron Binding Capacity 365 ug/dL (261-462); Transferrin 274 mg/dL (206-381)
[2022-01-15 15:30] LABS: Ferritin 46 ng/mL (18-464)
== END ==
PROVIDERS: Internal Medicine Hematology & Oncology; PCP Internal Medicine; Referring Provider Nurse Practitioner; Visit Provider Nurse Practitioner
DX: I50.42 Chronic combined systolic (congestive) and diastolic (congestive) heart failure (principal); C91.10 Chronic lymphocytic leukemia of B-cell type not having achieved remission; D50.9 Iron deficiency anemia, unspecified; D51.9 Vitamin B12 deficiency anemia, unspecified; I25.119 Atherosclerotic heart disease of native coronary artery with unspecified angina pectoris
CPT/HCPCS: 36415; 80053; 82728; 83540; 83550; 85025; 85045

== ENCOUNTER → 2022-08-17 15:53 | Outpatient (CLI) | payer MEDICARE, BC, SELFPAY ==
[2022-08-17 17:15] LABS: Cholesterol 126 mg/dL (140-199); HDL Cholesterol 54 mg/dL (40-60); LDL Cholesterol Calculated 53 mg/dL (<100); Triglycerides 97 mg/dL (35-150)
[2022-08-17 17:47] LABS: Prostate Specific Antigen 2.18 ng/mL (0.10-4.00)
== END ==
PROVIDERS: PCP Internal Medicine; Referring Provider Internal Medicine; Visit Provider Internal Medicine
DX: N40.1 Benign prostatic hyperplasia with lower urinary tract symptoms (principal); N13.8 Other obstructive and reflux uropathy
CPT/HCPCS: 36415; 80061; 84153

== ENCOUNTER → 2023-05-24 13:09 | Outpatient (CLI) | payer MEDICARE, BC, SELFPAY | PROVIDERS: PCP Internal Medicine; Referring Provider Nurse Practitioner; Visit Provider Nurse Practitioner | DX: Z79.899 Other long term (current) drug therapy (principal) | CPT/HCPCS: 94060; 94729 ==

== ENCOUNTER → 2023-12-16 12:42 | Outpatient (CLI) | payer MEDICARE, BC, SELFPAY ==
[2023-12-16 13:27] LABS: Cholesterol 119 mg/dL (140-199); HDL Cholesterol 55 mg/dL (40-60); LDL Cholesterol Calculated 31 mg/dL (<100); Triglycerides 165 mg/dL (35-150)
[2023-12-16 13:58] LABS: Prostate Specific Antigen 2.25 ng/mL (0.10-4.00)
[2023-12-16 14:17] LABS: Vitamin B12 485 pg/mL (239-931)
== END ==
PROVIDERS: PCP Internal Medicine; Referring Provider Internal Medicine; Visit Provider Internal Medicine
DX: E78.2 Mixed hyperlipidemia (principal); N40.1 Benign prostatic hyperplasia with lower urinary tract symptoms; D51.9 Vitamin B12 deficiency anemia, unspecified; N13.8 Other obstructive and reflux uropathy
CPT/HCPCS: 36415; 80061; 82607; 84153

== ENCOUNTER → 2024-12-28 13:56 | Outpatient (CLI) | payer MEDICARE, BC, SELFPAY ==
[2024-12-28 15:43] LABS: Cholesterol 130 mg/dL (140-199); HDL Cholesterol 51 mg/dL (40-60); LDL Cholesterol Calculated 47 mg/dL (<100); Triglycerides 159 mg/dL (35-150)
[2024-12-28 16:15] LABS: Prostate Specific Antigen 3.15 ng/mL (0.10-4.00)
== END ==
PROVIDERS: PCP Internal Medicine; Referring Provider Internal Medicine; Visit Provider Internal Medicine
DX: E78.2 Mixed hyperlipidemia (principal); N40.1 Benign prostatic hyperplasia with lower urinary tract symptoms; N13.8 Other obstructive and reflux uropathy
CPT/HCPCS: 36415; 80061; 84153